=== PATIENT | male | born 1950 | race Caucasian/White ===

== ENCOUNTER 2016-11-03 23:00 | Emergency (ER) | payer MEDICARE ==
[~2016-11-03] VITALS: Ht 185.4 cm; Wt 80.0 kg
[~2016-11-03 23:00] MED LIST: ALB083NB3 INH; ALBU18HF IH; CITA10TA14 PO; FURO-3 PO; GABA300C PO; K20 PO; NIC21 TOP; PROT40T PO
--- NOTE | 2016-11-03 23:01 | ED.REPORT ---
HPI-Head Prob / Injury Date of Service Nov 03, 2016 ED Provider: Dr. Golden Salguero D.O. A 66 year old anticoagulated male with a medical history including hypertension , DVT, MA, chronic pain, and opioid dependence s/p multiple accidental overdoses presents to the ED via EMS after being found down in the bathroom of his home just prior to arrival. The patient reports head and neck pain currently. EMS found him with normal vital signs. They suspect he may have overdosed on Xanax and morphine. The patient is a poor historian due to somnolence. Nursing Notes Stated Complaint: GROUND LEVEL FALL Nursing Notes Reviewed: Yes Allergies: Coded Allergies: NSAIDS (Non-Steroidal Anti-Inflamma (Verified Allergy, Unknown, 10/21/15) Can't take due to blood thinner. aspirin (Verified Allergy, Unknown, 10/21/15) Can't take due to blood thinner medication. Penicillins (Verified Adverse Reaction, Intermediate, n/v, 06/08/12) Scheduled Albuterol-Expunged Drug, Do Not Renew! (Albuterol-Expunged Drug, Do Not Renew!) 200 Puff/18 Gm Hfa.aer.ad 2 PUFF IH QIDP Two puffs, four times daily Albuterol-Expunged Drug, Do Not Renew! (Albuterol-Expunged Drug, Do Not Renew!) 2.5 Mg/3 Ml Nebu 3 ML INH QID Citalopram-Expunged Drug, Do Not Renew! (Citalopram-Expunged Drug, Do Not Renew! ) 10 Mg Tablet 10 MG PO DAILY Gabapentin-Expunged Drug, Do Not Renew! (Neurontin-Expunged Drug, Do Not Renew! ) 300 Mg Capsule 300 MG PO TID Nicotine-Expunged Drug, Do Not Renew! (Nicoderm 21mg-Expunged Drug, Do Not Renew !) Patch 21 MG TOP DAILY Pantoprazole-Expunged Drug, Do Not Renew! (Protonix-Expunged Drug, Do Not Renew! ) 40 Mg Tablet.dr 40 MG PO DAILY Miscellaneous Medications Furosemide-Expunged Drug, Do Not Renew! (Furosemide-Expunged Drug, Do Not Renew! ) 40 Mg Tablet 40 MG PO Potassium Chl-Expunged Drug, Do Not Renew! (O-Nhc-Ywjdurkx Drug, Do Not Renew!) 20 Meq Tab.er.prt 20 MEQ PO General Time Seen by Provider: 23:01 Chief Complaint Blunt head trauma, Loss of consciousness Hx Obtained From: Patient, EMS Unable to Obtain Hx: Mental status Arrived By: Ambulance Onset Occurred: Onset unknown Symptom Duration: Since onset Progression Since Onset: Gradually improving Caused by: Fall from (ground) Context: Occurred at: Home Location: : Neck: Occipital region L: Occipital region R Quality: Painful Severity: Current: Moderate Severity: Maximum: Moderate Associated with: Reports: Neck pain Pertinent Negative: Relieved by nothing Related History: Reports: Coagulopathy, Drug abuse Immunizations: Unknown Recent Healthcare: No recent doctor visit Similar Sx Previous: Yes Past Medical History Past Medical History Chronic respiratory failure Chronic pain Opioid dependence - history of accidental overdoses Coma in 2000 hx of seizures Myocardial infarction Pneumonia DVT Hypertension Reports: Congestive heart failure Past Surgical History PEG tube in 2000 shattered elbow repair Smoking History Former Smoker Social History Other Social History: Local resident Ambulatory Status Independent Review of Systems Constitutional: Denies: Fever Musculoskeletal: Reports: Neck pain Neurologic: Reports: Change LOC, Headache Complete sys rev & neg: except as marked. Physical Exam Initial Vital Signs Vital Signs (First) Date Time Temp Pulse Resp B/P Pulse Ox O2 Delivery O2 Flow Rate FiO2 11/03/16 23:17 71 14 107/74 99 Nasal Cannula 2 Initial VS: Reviewed Respiratory: Breath sounds normal, Clear to auscultation, No respiratory distress Cardiovascular: Regular rate & rhythm, Heart sounds normal Abdomen / GI: Soft, Non-tender Skin: Warm, Dry, No cyanosis Psychiatric: Mood/affect normal, Behavior normal General/Constitutional: No acute distress Alertness: Positive: Somnolent (but arousable) Head / Eyes: Normocephalic, Conjunctiva NL Posterior occipital tenderness Neck: No swelling Neck / Muscle Tenderness: Positive: Midline tenderness mid Mental Status: Positive: Somnolent (But arousable) Interpretation & Diagnostics Lab Results Interpretation Result Diagram: 11/03/165 11/03/16 2345 Test 11/03/16 23:45 White Blood Count 5.5th/mm3 (3.8-10.1) Red Blood Count 4.15mil/mm3 (4.40-5.80) Hemoglobin 13.2g/dL (13.8-17.2) Hematocrit 38.4% (41.0-50.0) Mean Corpuscular Volume 92.5fL (81-100) Mean Corpuscular Hemoglobin 31.8pg (27.0-35.0) Mean Corpuscular Hemoglobin Concent 34.4% (32.0-37.0) Red Cell Distribution Width 12.9% (12.3-15.4) Platelet Count 134bil/L (150-400) Neutrophils (%) (Auto) 77.6% (40-74) Lymphocytes (%) (Auto) 9.9% (14-46) Monocytes (%) (Auto) 8.1% (4-12) Eosinophils (%) (Auto) 4.0% (0-5) Basophils (%) (Auto) 0.2% (0-3) Prothrombin Time 24.9sec (8.1-12.5) Prothromb Time International Ratio 2.29ratio Sodium Level 141mEq/L (134-144) Potassium Level 3.9mEq/L (3.5-5.2) Chloride Level 102mEq/L (97-108) Carbon Dioxide Level 26mmol/L (18-29) Blood Urea Nitrogen 13mg/dL (8-27) Creatinine 0.97mg/dL (0.76-1.27) Estimat Glomerular Filtration Rate 83mL/min (>59) Glucose Level 96mg/dL (60-99) Calcium Level 9.0mg/dL (8.5-10.1) Total Bilirubin 0.6mg/dL (0.0-1.2) Aspartate Amino Transf (AST/SGOT) 22U/L (0-50) Alanine Aminotransferase (ALT/SGPT) 13U/L (0-44) Alkaline Phosphatase 53U/L (25-160) Total Protein 6.9g/dL (6.4-8.4) Albumin 4.0g/dL (3.4-5.0) Hold Singleton Top Tube Received (Received) Salicylates Level 3.0ug/mL (30-250) Acetaminophen Level 15.0ug/mL Rx (10-25) Alcohol, Quantitative < 10mg/dL (0-10) X-Ray Chest Interpretation Chest Xray Interpretation: Impression: No definite infiltrate seen. Left lung scaring. View: Portable Interpretation / Wet Read by: Wet read ED physician CT Head Interpretation CONCLUSION: Mild atrophy and periventricular white matter changes consistent with the patient's age. No hemorrhage or other specific acute abnormality demonstrated. Transmitted to ED by Dr. Orestes Altman M.D. at 11/03/2016 - 11:26:34 PM PST Study: Head CT no contrast Interpretation / Wet Read by: Interpret - Radiologist CT C-Spine Interpretation CONCLUSION: Degenerative disc and degenerative joint disease. No fracture or other specific acute injury. Transmitted to ED by Dr. Orestes Altman M.D. at 11/04/2016 - 12:13:30 AM PST Study type: CT no contrast Interpretation / Wet Read by: Interpret - Radiologist Re-Eval/Medical Decision Source of Hx: Old records Re-Evaluation/Progress : Time of Eval: 02:53 Patient Status: Condition improved Re-Evaluation/Progress Note: Patient is more alert and arousable. He has no complaints at this time and denies suicidal ideation. He admits to possibly taking his Ativan and morphine in excess this evening. He is not sober or lucid enough to discharge home. Discussed with patient CT and lab results, diagnosis, and plan for transfer of care to Dr. Britton. Counseled Regarding: Diagnosis, Lab results Discharge & Departure Shift Change Sign-Out Patient Care Transferred: Yes Discussed Complaint(s): Yes Laboratory Evaluation: Lab evaluation discussed Imaging Studies: Imaging discussed Response to Therapy: Improved Re-evaluation once sober Primary Impression: Polysubstance overdose Encounter type: initial encounter Injury intent: accidental or unintentional Qualified Code: T50.901A - Poisoning by unspecified drugs, medicaments and biological substances, accidental (unintentional), initial encounter Additional Impressions: Altered mental status Altered mental status type: somnolence Qualified Code: R40.0 - Somnolence Coagulopathy Disposition: Home All VS Reviewed: Yes Condition: Stable Additional Instructions: You took too much of your Dilaudid. Please avoid doing this in the future. Return to the ER if you do overdose again, or if you develop thoughts of harming yourself or others. Follow-up with your primary care provider in 1-2 days. Referrals: Calvin Cheney DO (PCP) Care Transferred to: Dr. Britton 0300 Dr. Mackay 0600 Scribe Attestation Portions of this note were transcribed by Yancy Saavedra and Franca Perry. I, Dr. Salguero and Dr. Britton, personally performed the history, physical exam, and medical decision-making; I reviewed and confirmed the accuracy of the information in the transcribed note. Signed by: Lisa Patterson, 11/04/2016, 02:57 Signed by: Lisa Meyer, 11/04/2016, 05:44 Portions of this note were transcribed by Marino Lynn. I, Dr. Mackay, personally performed the history, physical exam and medical decision-making; I reviewed and confirmed the accuracy of the information in the transcribed note. Signed by: Lisa Gutiérrez, 11/04/2016, 11:06 Attending Statement I assumed care of patient from Dr. Britton. Patient tells me he took 6 mg of Dilaudid last night. He denies plans to hurt himself or thoughts of hurting himself. He was trying to get "high". Plan was to discharge home when sober. Patient sobered up and was feeling much better. Is discharged home with plans to stop abusing his Dilaudid. Discharged home. copies to: Calvin Cheney Todd P DO Nov 03, 2016 23:01 YANCY SAAVEDRA Nov 03, 2016 23:30 Franca Perry Nov 04, 2016 03:23 MARINO LYNN Nov 04, 2016 11:06 Barrett Mackay MD Nov 04, 2016 15:46
[2016-11-03 23:17] VITALS: BP 107/74; PULSE 71; RESP 14; O2SAT 99
[2016-11-04 00:02] LABS: BASOPHILS % (AUTO) 0.2 % (0-3); MONOCYTES % (AUTO) 8.1 % (4-12); Mean Corpuscular Hemoglobin 31.8 pg (27.0-35.0); Mean Corpuscular Volume 92.5 fL (81-100); NEUTROPHILS % (AUTO) 77.6 % (40-74); Platelet Count 134 bil/L (150-400)
[2016-11-04 00:29] LABS: INR 2.29 ratio
[2016-11-04 01:21] VITALS: BP 103/63; PULSE 67; RESP 16; O2SAT 96
[2016-11-04] MEDS ORDERED: 0.9% Sodium Chloride 1,000 ML IV ONE (02:40)
[2016-11-04 04:14] VITALS: BP 106/61; PULSE 63; RESP 18; O2SAT 98
[2016-11-04 05:39] VITALS: BP 93/53; PULSE 63; RESP 18; O2SAT 94
--- NOTE | 2016-11-04 08:06 | DRSVH ---
PROCEDURE: CT BRAIN WITHOUT CONTRAST ([id number]) INDICATIONS: FALL ON COUMADIN TECHNIQUE: Noncontrast 4.5 mm thick angled axial sections acquired from the foramen magnum to the vertex, with c oronal reformats. COMPARISON: [facility], CT, BRAIN W/O CONTRAST, 07/12/2010, 17:02. FINDINGS: Image quality: Excellent. CSF spaces: Basal cisterns are patent. No extra-axial fluid collections. The ventricles are symmet lina in size and shape. Brain: No intracranial bleeds or masses. There is mild cerebral volume loss for age, with resultant ventricular and sulcal prominence. There are mild periventricular and deep white matter chronic sma ll vessel ischemic changes. There is intracranial internal carotid artery atherosclerosis. Skull and face: Calvarium and visualized facial bones appear intact, without suspicious lesions. Sinuses: Visualized sinuses and mastoids are clear. IMPRESSION: 1. No acute intracranial abnormalities. 2. Cerebral volume loss and chronic microvascular ischemic changes. No significant discrepancy with the shift mgr radiology preliminary report. Dictated by: Lilo Cohen M.D. on 11/04/2016 at 8:02 Approved by: Lilo Cohen M.D. on 11/04/2016 at 8:04
--- NOTE | 2016-11-04 08:50 | DRSVH ---
PROCEDURE: CT CERVICAL SPINE WITHOUT CONTRAST ([id number]) INDICATIONS: 66-year-old man with fall, head and neck pain. TECHNIQUE: Noncontrast 3 mm thick sections acquired from the skull base to the T4 level. Sagittal and coronal r eformats were then constructed. For radiation dose reduction, the following was used: automated exp osure control, adjustment of mA and/or kV according to patient size. COMPARISON: [facility], CR, XR CHEST 1VW (PORTABLE), 11/04/2016, 2:37. FINDINGS: Image quality: There are motion artifacts. Bones: No fractures or dislocations. Visualized superior ribs are intact. There is moderate degene rative disease at C3-C4. There is uncovertebral hypertrophy at C3-C4. Mild bilateral facet arthropath y, most pronounced at C2-C3 on the left. They are motion artifact in the lateral aspect of the left s uperior ribs. Soft tissues: Prevertebral soft tissues are normal in thickness. No paravertebral hematomas. No ap ical pneumothoraces. IMPRESSION: 1. No fracture in cervical spine. 2. Degenerative disc disease, uncovertebral hypertrophy and facet arthropathy in cervical spine. 2. Motion artifacts in the lateral aspect of the left superior ribs could obscure subtle fractures. I f there is clinical suspicion, rib series may be helpful. No significant discrepancy with the night auditor radiology preliminary report. Dictated by: Lilo Cohen M.D. on 11/04/2016 at 8:04 Approved by: Lilo Cohen M.D. on 11/04/2016 at 8:48
--- NOTE | 2016-11-04 09:06 | DRSVH ---
PROCEDURE: X-RAY CHEST ONE VIEW, PORTABLE ([id number]) INDICATIONS: COUGH, OVERDOSE TECHNIQUE: One view of the chest was acquired. COMPARISON: [facility], CR, XR CHEST 1VW (PORTABLE), 10/21/2015, 20:44. FINDINGS: Surgical changes and devices: None. Lungs and pleura: No pleural effusions or pneumothorax. Lungs are clear. Bibasilar scars and atela ctasis. Mediastinum: Mediastinal contours appear normal. Heart size is normal. Bones and chest wall: No suspicious bony lesions. Overlying soft tissues appear unremarkable. IMPRESSION: No acute cardiopulmonary disease. Dictated by: Ayush Almodovar Garrett Interpreted: Lilo Cohen MD on 11/04/2016 at 9:05 Transcribed by: YOLIS on 11/04/2016 at 9:05 Approved by: Lilo Cohen M.D. on 11/04/2016 at 16:50
[2016-11-04 11:13] VITALS: BP 127/57; PULSE 74; RESP 18; O2SAT 94
== END 2016-11-04 11:14 | disposition home or self-care (01) ==
LOC: SED 23:00
DX: T40.2X1A Poisoning by other opioids, accidental (unintentional), initial encounter (principal); X58.XXXA Exposure to other specified factors, initial encounter; Y92.002 Bathroom of unspecified non-institutional (private) residence as the place of occurrence of the external cause; Y93.89 Activity, other specified; Y99.8 Other external cause status; R40.0 Somnolence; D68.9 Coagulation defect, unspecified; I10 Essential (primary) hypertension; I25.2 Old myocardial infarction; F11.20 Opioid dependence, uncomplicated; G89.29 Other chronic pain; I50.9 Heart failure, unspecified; Z86.718 Personal history of other venous thrombosis and embolism; Z87.891 Personal history of nicotine dependence; Z79.01 Long term (current) use of anticoagulants; Z88.0 Allergy status to penicillin; Z88.6 Allergy status to analgesic agent
CPT/HCPCS: 36415; 70450; 71010; 72125; 80053; 85025; 85610; 96360; 99285; G0480; J7030